=== PATIENT | female | born 1995 | race Caucasian/White ===

== ENCOUNTER 2019-03-25 13:24 | Emergency (ER) | payer OTHER ==
[~2019-03-25] VITALS: Ht 180.3 cm; Wt 131.6 kg
[2019-03-25 13:35] VITALS: BP 125/88
[2019-03-25] MEDS ORDERED: KETOROLAC 15 MG/ML VIAL. IV ONE (14:15)
[2019-03-25] MEDS ORDERED: diphenhydrAMINE 50 MG/ML VIAL IVP ONE (14:15)
[2019-03-25] MEDS ORDERED: PROCHLORPERAZINE 10 MG/2 ML VIAL. IV ONE (14:15)
[2019-03-25] MEDS ORDERED: IV NORMAL SALINE 1000ML BAG 1,000 ML IV ONE (14:15)
[2019-03-25 14:38] LABS: U PREG PATIENT NEGATIVE (NEG)
--- NOTE | 2019-03-25 15:00 | RAD ---
EXAM: CT Head without IV contrast CLINICAL HISTORY: Headache behind left eye. Vision changes. COMPARISON: None. TECHNIQUE: Routine CT of the head without contrast. Soft tissues and bone windows were reviewed. PQRS compliance statement - One or more of the following individualized dose reduction techniques were utilized for this study: 1. Automated exposure control 2. Adjustment of the mA and/or kV according to patient size 3. Use of iterative reconstruction technique FINDINGS: There is no evidence of hemorrhage, mass or extra-axial fluid collection. Bro-white differentiation is maintained with no evidence of edema. There is no mass effect or shift of the intracranial structures. The ventricles, basilar cisterns and cortical sulci are normal in size and configuration for the patients stated age. The cerebellum and brainstem are unremarkable. The calvarium demonstrates no evidence of fracture or focal lesion. There is normal aeration of the visualized paranasal sinuses and mastoid air cells. The visualized portions of the orbits are normal. IMPRESSION: No evidence for acute intracranial process. Electronically signed by: Jon Chamorro MD (03/25/2019 2:57 PM) [id number]
--- NOTE | 2019-03-25 15:09 | PHYS DOC ---
Past Medical History Past Medical History: Diabetes-Type II, Hypertension Past Surgical History: No Surgical History Alcohol Use: None Drug Use: None Adult General Chief Complaint Chief Complaint: OTHER COMPLAINTS HPI HPI Patient is a 23 year old female who presents to the ER with complaints of throbbing pain behind her left eye with wavy vision in her left eye. She denies any recent head injury or history of migraines. Pt states she took her blood pressure at home and it was 175/71. She denies any numbness, tingling, weakness, difficulty speaking, incoordination, chest pain, palpitations, or shortness of breath. Pt states that yesterday she felt a little light headed all day and could hear pulsating in her ears Currently, she rates her pain a 5/10 on the pain scale. She reports nausea at this time, she denies any abdominal pain, d iarrhea, or vomiting. Pt states that she smokes half a pack of cigarettes daily. Review of Systems Review of Systems Constitutional: Denies fever or chills [] Eyes: Denies redness; see HPI HENT: Denies nasal congestion or sore throat [] Respiratory: Denies cough or shortness of breath [] Cardiovascular: No additional information not addressed in HPI [] GI: Denies abdominal pain, nausea, vomiting, or diarrhea [] : Denies dysuria or hematuria [] Musculoskeletal: Denies back pain or joint pain [] Integument: Denies rash or skin lesions [] Neurologic: Denies focal weakness or sensory changes; see HPI[] Complete systems were reviewed and found to be within normal limits, except as documented in this note. Current Medications Current Medications Current Medications Medications (Trade) Dose Ordered Sig/Anila Start Time Stop Time Status Last Admin Dose Admin Diphenhydramine HCl (Benadryl) 25 mg 1X ONCE 03/25/19 14:15 03/25/19 14:45 DC 03/25/19 14:51 25 MG Ketorolac Tromethamine (Toradol 15mg Vial) 15 mg 1X ONCE 03/25/19 14:15 03/25/19 14:45 DC 03/25/19 14:52 15 MG Prochlorperazine Edisylate (Compazine) 10 mg 1X ONCE 03/25/19 14:15 03/25/19 14:45 DC 03/25/19 14:51 10 MG Sodium Chloride 1,000 ml @ 1,000 mls/hr 1X ONCE 03/25/19 14:15 03/25/19 15:14 DC 03/25/19 14:51 1,000 MLS/HR Allergies Allergies Allergies Coded Allergies Type Severity Reaction Last Updated Verified No Known Drug Allergies 03/25/19 No Physical Exam Physical Exam Constitutional: Well developed, well nourished, no acute distress, non-toxic appearance, obese [] HENT: Normocephalic, atraumatic, bilateral external ears normal, oropharynx moist, no oral exudates, nose normal. [] Eyes: PERRLA, EOMI, conjunctiva normal, no discharge. [] Neck: Normal range of motion, no tenderness, supple, no stridor. [] Cardiovascular:Heart rate regular rhythm Lungs & Thorax: Respirations even and unlabored, no retractions, no respiratory distress Skin: Warm, dry, no erythema, no rash. [] Extremities: No cyanosis, no clubbing, ROM intact, no edema. [] Neurologic: Alert and oriented X 3, normal motor function, normal sensory function, no focal deficits noted. [] Psychologic: Affect normal, judgement normal, mood normal. [] Current Patient Data Vital Signs Vital Signs Date Time Temp Pulse Resp B/P (MAP) Pulse Ox O2 Delivery O2 Flow Rate FiO2 03/25/19 13:35 97.9 92 20 125/88 (100) 98 Room Air 97.9 Lab Values Laboratory Tests Test 03/25/19 14:19 Urine Test Negative (NEG) EKG EKG [] Radiology/Procedures Radiology/Procedures PROCEDURE: CT HEAD WO CONTRAST EXAM: CT Head without IV contrast CLINICAL HISTORY: Headache behind left eye. Vision changes. COMPARISON: None. TECHNIQUE: Routine CT of the head without contrast. Soft tissues and bone windows were reviewed. PQRS compliance statement - One or more of the following individualized dose reduction techniques were utilized for this study: 1. Automated exposure control 2. Adjustment of the mA and/or kV according to patient size 3. Use of iterative reconstruction technique FINDINGS: There is no evidence of hemorrhage, mass or extra-axial fluid collection. Bro-white differentiation is maintained with no evidence of edema. There is no mass effect or shift of the intracranial structures. The ventricles, basilar cisterns and cortical sulci are normal in size and configuration for the patients stated age. The cerebellum and brainstem are unremarkable. The calvarium demonstrates no evidence of fracture or focal lesion. There is normal aeration of the visualized paranasal sinuses and mastoid air cells. The visualized portions of the orbits are normal. IMPRESSION: No evidence for acute intracranial process.[] Course & Med Decision Making Course & Med Decision Making Pertinent Labs and Imaging studies reviewed. (See chart for details) dx: Migraine CT head was negative for any acute findings. Patient was given 1 L of MS, 10 mg Compazine, 25 mg of Benadryl, and 15 mg of Toradol. She reported relief of pain and no vision changes after medications. Patient reported feeling much better. Return precautions provided. Patient verbalized an understanding of home care, medications, follow-up, and return to ED instructions and was in agreement with the plan of care. [] Dragon Disclaimer Dragon Disclaimer This electronic medical record was generated, in whole or in part, using a voice recognition dictation system. Departure Departure Impression: Primary Impression: Migraine Disposition: HOME, SELF-CARE Condition: IMPROVED Referrals: NO PCP (PCP) Patient Instructions: Migraine Headache, Kvwx-of-Lnew Additional Instructions: Go home and rest in a dark cool room. May take Tylenol or ibuprofen as needed for pain. Follow-up with your primary care doctor if symptoms persist, return to the ER if symptoms worsen. Scripts Ibuprofen (IBUPROFEN) 600 Mg Tablet 600 MG PO PRN Q6HRS PRN for INFLAMMATION for 5 Days, #20 TAB 0 Refills Prov: SYLVIA MONTEZ LOGISTICS ADMINISTRATOR 03/25/19 Problem Qualifiers Primary Impression: Migraine Migraine type: without aura Status migrainosus presence: without status migrainosus Intractability: not intractable Qualified Codes: G43.009 - Migraine without aura, not intractable, without status migrainosus SYLVIA MONTEZ LOGISTICS ADMINISTRATOR Mar 25, 2019 15:09
[2019-03-25] MEDS ORDERED: IBUP-1007 PO (15:29)
== END 2019-03-25 15:41 | disposition home or self-care (01) ==
LOC: ER 13:24
DX: G43.009 Migraine without aura, not intractable, without status migrainosus (principal); R42 Dizziness and giddiness; E11.9 Type 2 diabetes mellitus without complications; I10 Essential (primary) hypertension; E66.9 Obesity, unspecified; Z68.41 Body mass index [BMI] 40.0-44.9, adult
CPT/HCPCS: 70450; 81025; 96361; 96374; 96375; 99285; J0780; J1200; J1885; J7030